=== PATIENT | female | born 1945 | race Two or more races ===

== ENCOUNTER → 2017-04-20 | Outpatient (CLI) | payer MEDICARE, BC ==
--- NOTE | 2017-05-02 15:34 | RAD ---
DATE: 04/20/2017 EXAM: MAMMO FLIP SCREENING BILATERAL Bilateral digital screening mammography to include digital breast tomosynthesis (3D mammography) HISTORY: Screening study. COMPARISON: 04/12/2016 This study was interpreted with the benefit of Computerized Aided Detection (CAD). The breast parenchyma shows scattered fibroglandular densities. Breast parenchyma level B. FINDINGS: Digital MLO and CC mammograms of both breasts were obtained. Additionally digital breast tomosynthesis (3D mammography) images of both breasts in the MLO and CC projections were performed. Comparison is made to the patient's outside mammograms dated 08/28/2009. The breast parenchyma is composed of scattered fibroglandular densities which can obscure a lesion on mammography (breast density code B). No spiculated mass is seen. No malignant appearing calcification or area of architectural distortion is noted. Digital breast tomosynthesis images demonstrate no spiculated mass or malignant appearing calcification. Since the previous examination there has been no significant interval change. IMPRESSION: BI-RADS Category 1, negative. There is no mammographic evidence of malignancy. Routine yearly screening mammography is recommended for follow-up. BI-RADS CATEGORY: 1 NEGATIVE RECOMMENDED FOLLOW-UP: 12M 12 MONTH FOLLOW-UP PQRS compliance statement: Patient information was entered into a reminder system with a target due date 04/20/2018 the next mammogram. Mammography is a sensitive method for finding small breast cancers, but it does not detect them all and is not a substitute for careful clinical examination. A negative mammogram does not negate a clinically suspicious finding and should not result in delay in biopsying a clinically suspicious abnormality. "Our facility is accredited by the [employer] Mammography [employer]."
== END | disposition home or self-care (01) ==
LOC: MAMMO 08:11
PROVIDERS: ATTEND Family Medicine
DX: Z12.31 Encounter for screening mammogram for malignant neoplasm of breast (principal)
CPT/HCPCS: 77063; G0202; 77067

== ENCOUNTER → 2018-05-10 | Outpatient (CLI) | payer MEDICARE, BC ==
--- NOTE | 2018-05-10 12:23 | RAD ---
Bone densitometry scan, 05/10/2018: History: Postmenopausal screening The lumbar spine and right hip were examined utilizing DEXA technique. The bone mineral density in the lumbar spine as measured from the L1-L4 levels is 1.15 g/sq cm. This yields a T score of -0.3 which is in the normal range. Hypertrophic degenerative change may be elevating this measurement. The total T score at the right hip is -1.2, compatible with osteopenia. IMPRESSION: Osteopenia at the right hip.
--- NOTE | 2018-05-10 13:43 | RAD ---
DATE: 05/10/2018 EXAM: MAMMO FLIP SCREENING BILATERAL HISTORY: Routine screening COMPARISON: 04/20/2017 This study was interpreted with the benefit of Computerized Aided Detection (CAD). Breast Density: SCATTERED The breast parenchyma shows scattered fibroglandular densities. Breast parenchyma level B. FINDINGS: 2-D and 3-D tomosynthesis imaging was performed in CC and MLO projections. No new or enlarging breast densities are seen. Several benign type calcifications are noted. No suspicious microcalcifications have developed. IMPRESSION: Stable mammograms without evidence of malignancy. BI-RADS CATEGORY: 2 BENIGN FINDING(S) RECOMMENDED FOLLOW-UP: 12M 12 MONTH FOLLOW-UP PQRS compliance statement: Patient information was entered into a reminder system with a target due date for the next mammogram. Mammography is a sensitive method for finding small breast cancers, but it does not detect them all and is not a substitute for careful clinical examination. A negative mammogram does not negate a clinically suspicious finding and should not result in delay in biopsying a clinically suspicious abnormality. "Our facility is accredited by the [employer] Mammography [employer]."
== END | disposition home or self-care (01) ==
LOC: DXRAD 09:42
PROVIDERS: ATTEND Family Medicine
DX: Z12.31 Encounter for screening mammogram for malignant neoplasm of breast (principal); M85.851 Other specified disorders of bone density and structure, right thigh; Z78.0 Asymptomatic menopausal state
CPT/HCPCS: 77063; 77067; 77080

== ENCOUNTER → 2018-06-20 | Outpatient (CLI) | payer MEDICARE, BC ==
--- NOTE | 2018-06-20 13:48 | CARD ---
MR#: [id number] Date of Study: 06/20/2018 Ordering Physician: GIRISH FERREIRA, Referring Physician: GIRISH FERREIRA, Tech: Sana Gonsalez RENATO APPROVED REPORT EXAM: Two-dimensional and M-mode echocardiogram with Doppler and color Doppler. Other Information Quality : AverageHR: 68bpm Rhythm : PVC's INDICATION History of rheumatic fever 2D DIMENSIONS RVDd3.6 (2.9-3.5cm)Left Atrium(2D)4.1 (1.6-4.0cm) IVSd1.3 (0.7-1.1cm)Aortic Root(2D)3.3 (2.0-3.7cm) LVDd4.0 (3.9-5.9cm)LVOT Diameter2.1 (1.8-2.4cm) PWd0.8 (0.7-1.1cm)LVDs2.2 (2.5-4.0cm) FS (%) 46.4 %SV56.2 ml LVEF(%)78.3 (>50%) M-Mode DIMENSIONS Left Atrium(MM)4.15 (2.5-4.0cm)Aortic Root3.56 (2.2-3.7cm) Aortic Valve AoV Peak Sawyer.118.7cm/sAoV VTI27.3cm AO Peak GR.5.6mmHgLVOT Peak Sawyer.85.2cm/s LVOT VTI 17.39cmAO Mean GR.4mmHg JOSI (VMAX)2.36oo5YOA (VTI)2.13cm2 AI P 1/2 [id number] Mitral Valve MV E Bcrdzjwy61.9cm/sMV DECEL HJNL518bz MV A Tosydfdm67.5cm/sE/A Ratio0.8 MV A Eirttfea224gq Pulmonary Valve PV Peak Nmgtljvs47.5cm/sPV Peak Grad.4mmHg Tricuspid Valve TR P. Yzneqhzi128rr/sRAP XOKVRVXT3lzOv TR Peak Gr.21moHiRGUZ87oeWt LEFT VENTRICLE The left ventricle is normal size. Proximal septal thickening is noted. The left ventricular systolic function is normal. The Ejection Fraction is 65-70%. There is normal LV segmental wall motion. Trans mitral Doppler flow pattern is Grade I-abnormal relaxation pattern. RIGHT VENTRICLE The right ventricle is normal size. There is normal right ventricular wall thickness. The right ventr icular systolic function is normal. ATRIA The left atrium is mildly dilated. The right atrium size is normal. The interatrial septum is intact with no evidence for an atrial septal defect or patent foramen ovale as noted on 2-D or Doppler imagi ng. AORTIC VALVE The aortic valve is normal in structure and function. The aortic valve is trileaflet. Doppler and Col or Flow revealed trace aortic regurgitation. There is no significant aortic valvular stenosis. MITRAL VALVE The mitral valve is normal in structure and function. There is no evidence of mitral valve prolapse. There is no mitral valve stenosis. Doppler and Color Flow revealed no mitral valve regurgitation note d. TRICUSPID VALVE The tricuspid valve is normal in structure and function. Doppler and Color Flow revealed trace tricus pid regurgitation. The PA pressure was estimated at 27 mmHg. There is no tricuspid valve prolapse or vegetation. There is no tricuspid valve stenosis. PULMONIC VALVE Pulmonic valve not well visualized. Doppler and Color Flow revealed no pulmonic valvular regurgitatio n. There is no pulmonic valvular stenosis. GREAT VESSELS The aortic root is normal in size. The ascending aorta is normal in size. The IVC is normal in size a nd collapses >50% with inspiration. PERICARDIAL EFFUSION There is no evidence of significant pericardial effusion. Critical Notification Critical Value: No <Conclusion> The left ventricular systolic function is normal. The Ejection Fraction is 65-70%. There is normal LV segmental wall motion. Transmitral Doppler flow pattern is Grade I-abnormal relaxation pattern. Doppler and Color Flow revealed trace tricuspid regurgitation. The PA pressure was estimated at 27 mmHg. There is no evidence of significant pericardial effusion. Signed by : Vishnu Goode, Electronically Approved : 06/20/2018 13:46:38
== END | disposition home or self-care (01) ==
LOC: ECHO 12:48
PROVIDERS: ATTEND Physician Assistant
DX: I05.8 Other rheumatic mitral valve diseases (principal)
CPT/HCPCS: 93306

== ENCOUNTER → 2019-05-18 | Outpatient (CLI) | payer MEDICARE, BC ==
--- NOTE | 2019-05-18 15:49 | RAD ---
DATE: 05/18/2019 EXAM: MAMMO FLIP SCREENING BILATERAL HISTORY: Routine screening COMPARISON: 08/28/2009, 04/20/2017, 05/10/2018 mammographic exams This study was interpreted with the benefit of Computerized Aided Detection (CAD). Breast Density: SCATTERED The breast parenchyma shows scattered fibroglandular densities. Breast parenchyma level B. FINDINGS: No suspicious calcification, mass, or distortion. IMPRESSION: Stable BI-RADS CATEGORY: 1 NEGATIVE RECOMMENDED FOLLOW-UP: 12M 12 MONTH FOLLOW-UP PQRS compliance statement: Patient information was entered into a reminder system with a target due date for the next mammogram. Mammography is a sensitive method for finding small breast cancers, but it does not detect them all and is not a substitute for careful clinical examination. A negative mammogram does not negate a clinically suspicious finding and should not result in delay in biopsying a clinically suspicious abnormality. "Our facility is accredited by the [employer] Mammography [employer]."
== END | disposition home or self-care (01) ==
LOC: MAMMO 07:58
PROVIDERS: ATTEND Physician Assistant
DX: Z12.31 Encounter for screening mammogram for malignant neoplasm of breast (principal)
CPT/HCPCS: 77063; 77067

== ENCOUNTER → 2020-06-10 | Outpatient (CLI) | payer MEDICARE, BC ==
--- NOTE | 2020-06-10 13:55 | RAD ---
EXAMINATION: MG BILAT SCREEN+FLIP CLINICAL HISTORY: Routine screening TECHNIQUE: Digital craniocaudal and mediolateral oblique views of the bilateral breasts obtained with 3-D tomosynthesis. COMPARISON: 05/18/2019, 05/10/2018, 04/20/2017 BREAST COMPOSITION: There are scattered areas of fibroglandular density. FINDINGS: No evidence of suspicious mass, calcifications, or areas of architectural distortion. IMPRESSION: No mammographic evidence of malignancy. BI-RADS ASSESSMENT: Category 1: Negative RECOMMENDATION: Return for routine bilateral screening mammogram in one year. PQRS compliance statement - Patient information was entered into a reminder system with a target due date for the next mammogram. "Our facility is accredited by the [employer] Mammography [employer]." Electronically signed by: Gaurav Tucker DO (06/10/2020 1:53 PM) [id number]
--- NOTE | 2020-06-11 09:22 | RAD ---
INDICATION: Osteoporosis screening. Postmenopausal follow-up COMPARISON: 05/10/2018 TECHNIQUE: Bone densitometry was performed through the lumbar spine and proximal femur. FINDINGS: Lumbar Spine: BMD: 1.16 T-Score: 0.1 Increased by 4 percent from prior Proximal Femur: BMD: 0.77 T-Score: -1.5 Decreased by 5 percent from prior IMPRESSION: 1. Lumbar spine falls within the normal range. 2. Proximal femur falls within the osteopenic range. Electronically signed by: Ashok Vila MD (06/11/2020 9:19 AM) [id number]
== END ==
LOC: MAMMO 08:04
PROVIDERS: ATTEND Physician Assistant
DX: Z12.31 Encounter for screening mammogram for malignant neoplasm of breast (principal); M85.88 Other specified disorders of bone density and structure, other site
CPT/HCPCS: 77063; 77067; 77080